=== PATIENT | female | born 1970 | race African-American/Black ===

== ENCOUNTER 2025-02-21 18:58 | Inpatient (IN) | payer OTHER, SELFPAY ==
[2025-02-21 12:16] VITALS: BP 150/75
--- NOTE | 2025-02-21 13:09 | ED.GENMED ---
History of Present Illness
<GARRET Salinas - Last Filed: 02/22/25 22:51>
General
Chief Complaint: Weakness
Source: patient
Exam Limitations: none
Time Seen by Provider: 02/21/25 12:46
Nursing documentation reviewed up to this point in time: agreed with
History of Present Illness
History of Present Illness:
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 She is followed by [facility] she gets chemo every 3 weeks and her last chemotherapy was 02/10. Patient
reports ever since her last chemo she is feeling very weak shortness of breath and has abdominal bloating and discomfort. on Eliquis, has not skipped a dose.
She does receive fluids by visiting nurse twice a week via her port however today visiting nurse sent her to the ER.
She has no cardiac history.
Phy Exam
<GARRET Salinas - Last Filed: 02/22/25 22:51>
General Physical Exam
General Presentation: no apparent distress
General age: appears stated age
General Skin: warm and dry
General Habitus: normal
General Mental: alert
General Hydration: appears well hydrated
Cardiovascular Exam
Cardiovascular Exam: regular rate/rhythm, no murmur and normal peripheral pulses
Pulmonary Exam
Pulmonary Exam: lungs clear and no respiratory distress
Gastrointestinal Exam
Gastrointestinal Exam: soft and other (Nonspecific abdominal tenderness)
Neurological Exam
Neurological Exam: alert and oriented x3
Musculoskeletal Exam
Musculoskeletal Exam: full ROM
Skin Exam
Skin Exam: normal color and warm/dry
Psychiatric Exam
Psychiatric Exam: normal mood/affect
Course
<GARRET Salinas - Last Filed: 02/22/25 22:51>
Orders/Labs/Results
Orders:
Orders
02/21/25 Breakfast
Regular
At Your Request: Full Participation
02/21/25 13:20
IV Insert/Care/Rem.- Treatment PRN
02/21/25 13:23
0.9% Sodium Chloride 500 ml [Nss] 500 ml IV BOLUS
02/21/25 13:41
Basic Metabolic Panel Urgent
Complete Blood Count/With Diff Urgent
Lipase Urgent
Pro-BNP [NT-proBNP] Urgent
Urinalysis Reflex To Culture Urgent
Date Specimen was Collected: 02/21/25
Time Specimen was Collected: 13:38
Urine Microscopic Reflex Cult Urgent
02/21/25 15:01
CT Pe/abd/pel W Urgent
Comment:
Reason For Exam: abd pain/SOB hx of cancer
02/21/25 15:59
0.9% Sodium Chloride 500 ml [Nss] 500 ml IV BOLUS
02/21/25 18:13
Admit/Transfer Patient As Directed
Co-Sign Provider:
Level of Care: Inpatient admission
Assign to:: Medical/Surgical
Physician / Group: patti matos
Diagnosis: dehydration/metstatic disease
Reason for Hospitalization: metastatic disease
Expected length of stay greater than two midnights?: Yes
ELOS- Estimated Length of Stay in days: 3
I certify the patient meets the requirements for IP care: Yes
02/21/25 18:14
PRN Pain Medication Management As Directed
May give lesser potent ordered pain med per pt: Yes
preference::
Protocol:: Medication orders for pain may be administered in a
manner that supports deferring to patient preference
when the pt is:
- Requesting an ordered lesser potent pain medication.
Least to most potent pain medications are defined
as: acetaminophen < NSAID < tramadol < opioids
(morphine, oxycodone, hydromorphone).
- Requesting a lesser dose of the same medication IF
ORDERED.
- Requesting a less intrusive route of administration
if both routes are prescribed by the provider (PO <
IV).
02/21/25 18:15
Code Status As Directed
Resuscitation Status: Full Code
02/21/25 20:33
Acetaminophen [Tylenol] 650 mg PO Q4HPRN PRN
Apixaban [Eliquis] 5 mg PO BID
Bisacodyl [Dulcolax] 10 mg RECTAL [id number] PRN
Docusate W/Senna [Senokot-S] 1 tablet PO BIDPRN PRN
Lorazepam [Ativan] 1 mg PO BIDPRN PRN anixety
Polyethylene Glycol Powder [Miralax] 17 grams PO DAILYPRN PRN
02/21/25 20:33
ONCOLOGY CONSULT Routine
Consulting Provider: Brayan Plummer
Was physician already notified: Yes
Activity As Directed
Activity Level: As Tolerated
Vital Signs As Directed
Frequency: Per unit guidelines
Ot Eval And Treat Routine
Pt Eval And Treat Routine
Activity Level: As Tolerated
02/22/25 06:16
Basic Metabolic Panel IN AM
Complete Blood Count/No Diff IN AM
Magnesium IN AM
02/22/25 08:00
Amlodipine [Norvasc] 10 mg PO DAILY
Abnormal Lab Results
02/21/25
13:41
WBC 2.7 L 10^3/uL
(4.8-10.8)
RBC 2.64 L 10^6/uL
(4.20-5.40)
Hgb 9.5 L g/dL
(12.0-16.0)
Hct 25.9 L %
(37.0-47.0)
MCH 35.2 H pg
(27.0-31.0)
RDW 14.6 H %
(11.5-14.5)
Plt Count 22 L* 10^3/uL
(130-400)
MPV 12.7 H fL
(7.4-10.4)
Absolute Lymphs (auto) 0.8 L 10^3/uL
(1.2-3.4)
Immature Gran % 0.8 H %
(0-0.5)
Sodium 131 L mmol/L
(135-145)
Glucose 105 H mg/dl
(70-99)
Ur Occult Blood Reflex 3+ A
(Negative)
Urine RBC 3-6 A /HPF
(0-2)
Urine Bacteria (Reflex) Few A
(Negative)
Urine Albumin (Reflex) 1+ A
(Neg - Trace)
02/21/25 13:41
02/21/25 13:41
Vital Signs
Initial and Last Documented VS:
Initial Vital Signs
Temp Pulse Resp BP Pulse Ox
98.0 F 106 18 150/75 93
02/21/25 12:16 02/21/25 12:16 02/21/25 12:16 02/21/25 12:16 02/21/25 12:16
Last Documented Vital Signs
Temp Pulse Resp BP Pulse Ox
98.0 F 102 16 135/70 94
02/22/25 16:00 02/22/25 16:00 02/22/25 16:00 02/22/25 16:00 02/22/25 16:00
<Julio Crowe MD - Last Filed: 02/21/25 15:24>
Orders/Labs/Results
Orders:
Orders
02/21/25 Breakfast
Regular
At Your Request: Full Participation
02/21/25 13:20
IV Insert/Care/Rem.- Treatment PRN
02/21/25 13:23
0.9% Sodium Chloride 500 ml [Nss] 500 ml IV BOLUS
02/21/25 13:41
Basic Metabolic Panel Urgent
Complete Blood Count/With Diff Urgent
Lipase Urgent
Pro-BNP [NT-proBNP] Urgent
Urinalysis Reflex To Culture Urgent
Date Specimen was Collected: 02/21/25
Time Specimen was Collected: 13:38
Urine Microscopic Reflex Cult Urgent
02/21/25 15:01
CT Pe/abd/pel W Urgent
Comment:
Reason For Exam: abd pain/SOB hx of cancer
02/21/25 15:59
0.9% Sodium Chloride 500 ml [Nss] 500 ml IV BOLUS
02/21/25 18:13
Admit/Transfer Patient As Directed
Co-Sign Provider:
Level of Care: Inpatient admission
Assign to:: Medical/Surgical
Physician / Group: patti matos
Diagnosis: dehydration/metstatic disease
Reason for Hospitalization: metastatic disease
Expected length of stay greater than two midnights?: Yes
ELOS- Estimated Length of Stay in days: 3
I certify the patient meets the requirements for IP care: Yes
02/21/25 18:14
PRN Pain Medication Management As Directed
May give lesser potent ordered pain med per pt: Yes
preference::
Protocol:: Medication orders for pain may be administered in a
manner that supports deferring to patient preference
when the pt is:
- Requesting an ordered lesser potent pain medication.
Least to most potent pain medications are defined
as: acetaminophen < NSAID < tramadol < opioids
(morphine, oxycodone, hydromorphone).
- Requesting a lesser dose of the same medication IF
ORDERED.
- Requesting a less intrusive route of administration
if both routes are prescribed by the provider (PO <
IV).
02/21/25 18:15
Code Status As Directed
Resuscitation Status: Full Code
02/21/25 20:33
Acetaminophen [Tylenol] 650 mg PO Q4HPRN PRN
Apixaban [Eliquis] 5 mg PO BID
Bisacodyl [Dulcolax] 10 mg RECTAL [id number] PRN
Docusate W/Senna [Senokot-S] 1 tablet PO BIDPRN PRN
Lorazepam [Ativan] 1 mg PO BIDPRN PRN anixety
Polyethylene Glycol Powder [Miralax] 17 grams PO DAILYPRN PRN
02/21/25 20:33
ONCOLOGY CONSULT Routine
Consulting Provider: Brayan Plummer
Was physician already notified: Yes
Activity As Directed
Activity Level: As Tolerated
Vital Signs As Directed
Frequency: Per unit guidelines
Ot Eval And Treat Routine
Pt Eval And Treat Routine
Activity Level: As Tolerated
02/22/25 06:16
Basic Metabolic Panel IN AM
Complete Blood Count/No Diff IN AM
Magnesium IN AM
02/22/25 08:00
Amlodipine [Norvasc] 10 mg PO DAILY
Abnormal Lab Results
02/21/25
13:41
WBC 2.7 L 10^3/uL
(4.8-10.8)
RBC 2.64 L 10^6/uL
(4.20-5.40)
Hgb 9.5 L g/dL
(12.0-16.0)
Hct 25.9 L %
(37.0-47.0)
MCH 35.2 H pg
(27.0-31.0)
RDW 14.6 H %
(11.5-14.5)
Plt Count 22 L* 10^3/uL
(130-400)
MPV 12.7 H fL
(7.4-10.4)
Absolute Lymphs (auto) 0.8 L 10^3/uL
(1.2-3.4)
Immature Gran % 0.8 H %
(0-0.5)
Sodium 131 L mmol/L
(135-145)
Glucose 105 H mg/dl
(70-99)
Ur Occult Blood Reflex 3+ A
(Negative)
Urine RBC 3-6 A /HPF
(0-2)
Urine Bacteria (Reflex) Few A
(Negative)
Urine Albumin (Reflex) 1+ A
(Neg - Trace)
02/21/25 13:41
02/21/25 13:41
Vital Signs
Initial and Last Documented VS:
Initial Vital Signs
Temp Pulse Resp BP Pulse Ox
98.0 F 106 18 150/75 93
02/21/25 12:16 02/21/25 12:16 02/21/25 12:16 02/21/25 12:16 02/21/25 12:16
Last Documented Vital Signs
Temp Pulse Resp BP Pulse Ox
98.0 F 102 16 135/70 94
02/22/25 16:00 02/22/25 16:00 02/22/25 16:00 02/22/25 16:00 02/22/25 16:00
<So Ayers NP - Last Filed: 02/21/25 17:43>
Orders/Labs/Results
Orders:
Orders
02/21/25 Breakfast
Regular
At Your Request: Full Participation
02/21/25 13:20
IV Insert/Care/Rem.- Treatment PRN
02/21/25 13:23
0.9% Sodium Chloride 500 ml [Nss] 500 ml IV BOLUS
02/21/25 13:41
Basic Metabolic Panel Urgent
Complete Blood Count/With Diff Urgent
Lipase Urgent
Pro-BNP [NT-proBNP] Urgent
Urinalysis Reflex To Culture Urgent
Date Specimen was Collected: 02/21/25
Time Specimen was Collected: 13:38
Urine Microscopic Reflex Cult Urgent
02/21/25 15:01
CT Pe/abd/pel W Urgent
Comment:
Reason For Exam: abd pain/SOB hx of cancer
02/21/25 15:59
0.9% Sodium Chloride 500 ml [Nss] 500 ml IV BOLUS
02/21/25 18:13
Admit/Transfer Patient As Directed
Co-Sign Provider:
Level of Care: Inpatient admission
Assign to:: Medical/Surgical
Physician / Group: patti matos
Diagnosis: dehydration/metstatic disease
Reason for Hospitalization: metastatic disease
Expected length of stay greater than two midnights?: Yes
ELOS- Estimated Length of Stay in days: 3
I certify the patient meets the requirements for IP care: Yes
02/21/25 18:14
PRN Pain Medication Management As Directed
May give lesser potent ordered pain med per pt: Yes
preference::
Protocol:: Medication orders for pain may be administered in a
manner that supports deferring to patient preference
when the pt is:
- Requesting an ordered lesser potent pain medication.
Least to most potent pain medications are defined
as: acetaminophen < NSAID < tramadol < opioids
(morphine, oxycodone, hydromorphone).
- Requesting a lesser dose of the same medication IF
ORDERED.
- Requesting a less intrusive route of administration
if both routes are prescribed by the provider (PO <
IV).
02/21/25 18:15
Code Status As Directed
Resuscitation Status: Full Code
02/21/25 20:33
Acetaminophen [Tylenol] 650 mg PO Q4HPRN PRN
Apixaban [Eliquis] 5 mg PO BID
Bisacodyl [Dulcolax] 10 mg RECTAL [id number] PRN
Docusate W/Senna [Senokot-S] 1 tablet PO BIDPRN PRN
Lorazepam [Ativan] 1 mg PO BIDPRN PRN anixety
Polyethylene Glycol Powder [Miralax] 17 grams PO DAILYPRN PRN
02/21/25 20:33
ONCOLOGY CONSULT Routine
Consulting Provider: Brayan Plummer
Was physician already notified: Yes
Activity As Directed
Activity Level: As Tolerated
Vital Signs As Directed
Frequency: Per unit guidelines
Ot Eval And Treat Routine
Pt Eval And Treat Routine
Activity Level: As Tolerated
02/22/25 06:16
Basic Metabolic Panel IN AM
Complete Blood Count/No Diff IN AM
Magnesium IN AM
02/22/25 08:00
Amlodipine [Norvasc] 10 mg PO DAILY
Abnormal Lab Results
02/21/25
13:41
WBC 2.7 L 10^3/uL
(4.8-10.8)
RBC 2.64 L 10^6/uL
(4.20-5.40)
Hgb 9.5 L g/dL
(12.0-16.0)
Hct 25.9 L %
(37.0-47.0)
MCH 35.2 H pg
(27.0-31.0)
RDW 14.6 H %
(11.5-14.5)
Plt Count 22 L* 10^3/uL
(130-400)
MPV 12.7 H fL
(7.4-10.4)
Absolute Lymphs (auto) 0.8 L 10^3/uL
(1.2-3.4)
Immature Gran % 0.8 H %
(0-0.5)
Sodium 131 L mmol/L
(135-145)
Glucose 105 H mg/dl
(70-99)
Ur Occult Blood Reflex 3+ A
(Negative)
Urine RBC 3-6 A /HPF
(0-2)
Urine Bacteria (Reflex) Few A
(Negative)
Urine Albumin (Reflex) 1+ A
(Neg - Trace)
02/21/25 13:41
02/21/25 13:41
Vital Signs
Initial and Last Documented VS:
Initial Vital Signs
Temp Pulse Resp BP Pulse Ox
98.0 F 106 18 150/75 93
02/21/25 12:16 02/21/25 12:16 02/21/25 12:16 02/21/25 12:16 02/21/25 12:16
Last Documented Vital Signs
Temp Pulse Resp BP Pulse Ox
98.0 F 102 16 135/70 94
02/22/25 16:00 02/22/25 16:00 02/22/25 16:00 02/22/25 16:00 02/22/25 16:00
<GARRET Salinas - Last Filed: 02/22/25 22:51>
MDM/Problems Addressed
Differential Diagnosis Includes:
Not limited to anemia obstruction diverticulitis metastatic disease from leiomyosarcoma
MDM/Problems Addressed:
As documented pt is 54-year-old female with past medical history of leiomyosarcoma followed at [place] currently receiving chemo complains of shortness of breath weakness and abdominal bloating discomfort. Patient denies any vomiting diarrhea cough
URI symptoms. Patient denies any recent fever chills she is afebrile. Her white count was found to be low at 2.7 here her hemoglobin is 9.5 and platelets are 22,000. Patient's labs from February 08 from [place] show white count of 4.3 and
hemoglobin 11.8 and platelets of 105,000. Patient is on Eliquis has not missed a dose
Case d/c w/ DR Crowe. CT chest/abd/pelvis ordered. pt with history of nephrectomy however normal renal function fluid bolus given. Patient not hypoxic in no acute distress. Care of patient at this time transferred to
[facility]. ct pending.
<GARRET Salinas - Last Filed: 02/22/25 22:51>
*Radiology
Radiology exam reviewed: radiology read reviewed
*Pulse Oximetry
SaO2: 93
Oxygen Mode of Delivery: Room air
Patient hypoxic: yes
*Critical Care Note
Total Time (30-74mins, 75-104mins- exclusive of procedures): Not Applicable
<So Ayers NP - Last Filed: 02/21/25 17:43>
Update Note
Update Note:
Patient to ED with complaint of increasing weakness, dyspnea since her last chemo on 02/10. States this was the 2nd round of a new medication. SHe did not have issues after her first round. SHe reports she is unable to ambulate, care for self
without max assist due to her weakness. Reviewed CT findings with her. SHe denies any new findings. VSS, she remains afebrile. Pulse ox stable at 98% RA WIll admit to hospitalist a planned.
ED Attending Note
<GARRET Salinas - Last Filed: 02/22/25 22:51>
-
Portions of this chart may have been created with voice recognition software.� Occasional wrong word or��sound alike� substitutions may have occurred due to the inherent limitations of voice recognition software.
<Julio Crowe MD - Last Filed: 02/21/25 15:24>
ED Attending Note
Patient seen and examined by attending physician: Yes
I performed the substantive portion of visit, reviewed & personally made and approve the management plan that is documented in note by myself or SUDHIR.: Yes
ED Attending Note:
54-year-old female complaining of increased shortness of breath and abdominal distention over 3 to 4 days. Currently receiving chemo at [place] for sarcoma. Last treatment 2 weeks ago. Denies chest pain pleuritic pain fever.
On exam patient is in no acute distress. She has got crackles and rhonchi in the left base. Heart regular rate and rhythm. No murmur. Abdomen mildly distended. Old scar. Mild epigastric tenderness. No rebound or guarding no mass or hernia.
Extremities warm and dry. Perfusing well. No edema.
Impression is shortness of breath dyspnea on exertion fatigue abdominal distention. Multiple etiologies including PE acute abdominal process pneumonia. Highly doubt heart failure primary cardiac issue. Doubt obstruction. Creatinine is stable.
She does have 1 kidney but IV dye should be reasonable given the normal renal function.
Patient has remained stable clinically. Workup continues. Renal function normal. Thrombocytopenia new. Previous platelet count was 102. Discussed IV dye with the patient both for abdominal scanning and for pulmonary emboli workup. Dye with 1
kidney and normal renal function should not be an issue. However this was discussed with the patient to make sure she was okay with this approach which she is. Will clearly warrant admission. Await further testing to help delineate etiology of
patient's symptoms
Discharge Plan
Departure
Patient Disposition: Admit
Date of Disposition: 02/21/25
Time of Disposition: 17:35
Presentation/result/management discussed w/ accepting MD/DO: Hospitalist
Patient with high blood pressure during this ER visit?: No
Condition: Fair
Covid-19: Not Applicable
Discharge Problem:
Weakness, Dyspnea
Interventions
Interventions:
*Risk Screen - Suicide Last Done: 02/21/25 12:16
*General Assessment Last Done: 02/21/25 12:16
*Neglect/Abuse Screening Last Done: 02/21/25 13:34
*ED- Fall Risk Assessment Last Done: 02/21/25 13:34
*ED COVID-19 Vaccine History Last Done: 02/21/25 13:34
*ED Influenza Vaccine History Last Done: 02/21/25 13:34
*Nursing Disposition Last Done: 02/21/25 20:20
ED- Cardiac Assessment Last Done: 02/21/25 13:34
ED- Neurological Assessment Last Done: 02/21/25 13:34
ED- Pulmonary Assessment Last Done: 02/21/25 13:34
Discharge Date and Time
Discharge Date/Time: 02/21/25 20:20
[2025-02-21 13:34] VITALS: BMI 21.5
[2025-02-21] MEDS: NSS 500 IV ×2 (13:42→16:37)
[2025-02-21 13:59] LABS: Urine Character Clear (Clear)
[2025-02-21 14:09] LABS: Urine Squamous Cell 16-20 /LPF (Few)
[2025-02-21 14:23] LABS: Hematocrit 25.9 % (37.0-47.0); Hemoglobin 9.5 g/dL (12.0-16.0); Mean Corp Hgb Conc. 36.0 g/dL (33.0-37.0); Mean Corpuscular Volume 97.7 fL (81.0-99.0); Nucleated Red Blood Cells % 0 %; Red Cell Dist. Width 14.6 % (11.5-14.5)
[2025-02-21 14:25] LABS: Platelet Count 22 10^3/uL (130-400)
[2025-02-21 14:37] LABS: Blood Urea Nitrogen 13 mg/dl (7-17); Calcium 8.4 mg/dl (8.4-10.2); Carbon Dioxide 23 mmol/L (22-30); Chloride 103 mmol/L (98-107); Estimated Creatinine Clearance 106 ml/min; Glucose 105 mg/dl (70-99); Lipase 98 U/L (23-300); Sodium 131 mmol/L (135-145); eGFR > 60.00
--- NOTE | 2025-02-21 17:45 | HPS.HSE ---
Family Physician
-
Family Physician: Joan Boucher
Chief Complaint
-
generalized weakness, sob
History of Present Illness
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 patient stated that her body feels very heavy and not to
able move due to weakness.patient stated sob with exertion. denied cough,congestion, fever, chills, HERMAN, dizzy. denied chest pain. she feels her abdomen is bloated. denied diarrhea, constipation. denied dysuria or hematuria. She is followed by [facility]
she gets chemo every 3 weeks.She does receive fluids by visiting nurse twice a week via her port however today visiting nurse sent her to the ER.
upon arrival noted leukopenia. received normal saline in Er. admitting for further management.
Medical History
Past Medical History
Past Medical History: Reports Other
Additional Past Medical History:
Hypertension, leiomyosarcoma
Past Surgical History: Reports Other
Additional Past Surgical History:
Nephrectomy hysterectomy, cholecystectomy, hernia repair
Social History
Tobacco: Non-smoker
Alcohol: None
Drug: None
Personal:
Living: With Family
Family History
Family History: Not pertinent
Allergies / Home Medications
Allergies reflects when Allergies were last updated in imagine.
Home Medications with original date entered in imagine
Allergy/Medication List:
Allergies
Allergy/AdvReac Type Severity Reaction Status Date / Time
adhesive tape Allergy Unknown Verified 02/21/25 12:21
Home Medications
amlodipine 10 mg tablet (Norvasc) 10 mg PO DAILY 02/21/25
apixaban 5 mg tablet (Eliquis) 5 mg PO BID 02/21/25
hydrochlorothiazide 25 mg tablet 25 mg PO DAILY 02/21/25
lorazepam 1 mg tablet 1 mg PO BIDPRN PRN anixety 02/21/25
Review of Systems
-
Constitutional: Reports No Symptoms
EENT: Reports No Symptoms
Respiratory: Reports Trouble Breathing
Cardiac: Reports No Symptoms
Abdomen/GI: Reports No Symptoms
: Reports No Symptoms
Musculoskeletal: Reports No Symptoms
Skin: Reports No Symptoms
Neurological: Reports Weakness
Endocrine: Reports No Symptoms
Hematologic/Lymphatic: Reports No Symptoms
Psych: Reports No Symptoms
Physical Exam
Vital Signs
Vital Signs
Temp Pulse Resp BP Pulse Ox
98.0 F 99 15 150/75 98
02/21/25 12:16 02/21/25 16:00 02/21/25 16:00 02/21/25 12:16 02/21/25 15:15
Physical Exam
General: Well Developed, Well Nourished and No Apparent Distress
HEENT: NormoCephalic, Moist mucous membranes and Atraumatic
Respiratory: Clear
Cardiac: S1/S2 and Regular Rhythm; No Murmur or Rub
GI: Soft, Non Tender, Non Distended and Normal Bowel Sounds; No Organomegaly
Rectal: Deferred by Provider
Musculoskeletal: No Clubbing, No Cyanosis and No Edema
Skin: No Rash
Neuro: AO x 3 and Nonfocal/grossly intact
Psych: Calm
Laboratory Results
-
02/21/25 13:41
02/21/25 13:41
Laboratory Results
Total Bilirubin Cancelled 02/21/25 13:41
AST Cancelled 02/21/25 13:41
ALT Cancelled 02/21/25 13:41
Alkaline Phosphatase Cancelled 02/21/25 13:41
Lipase 98 U/L (23-300) 02/21/25 13:41
Data Reviewed
-
CT Scan: Report Reviewed by me
Lab Data: Labs Reviewed by me
Impression/Plan
-
# Generalized weakness likely secondary to chemo and metastic disease
-PT/OT consulted
# Short of breath unclear cause
-- CT abdomen pelvis with impression of no evidence of PE.
-oxygenating very well on RA
-consider supplemental oxygen to keep sat >95, wean as tolerated
# Leukopenia secondary to chemo
- WBCs 2.7, hemoglobin 9.5, platelets 22
-ctm
# Hyponatremia likely hypovolemic
- Sodium 131
-fluids in the ER
-BMP in am
-hold hctz
#hxt of leiomyosarcoma with mets to the liver
-on Chemo at [place] every 3 weeks, last dose on the , next dose on the
-oncology consulted
#abdominal bloating likely from metastatic disease
-CT with Mild left lower lobe atelectasis.There is a 1.4 mm and 2.1 mm pulmonary nodule. Comparison with any prior examination advised. Otherwise, consider follow-up in one year.Hepatic metastatic disease. Right adrenal mass, likely metastatic
lesion. Left para-aortic/renal fossa mass; a similar mass was present in 2016. This may represent recurrent renal cell carcinoma the proper clinical setting, or the patient's known sarcoma and/or recurrence. Correlation advised, as well as
comparison with any more recent prior examination. Suspect 2.9 cm mass in the pancreatic head. This could represent focal pancreatitis, primary pancreatic neoplasm, or metastatic lesion. Comparison with any prior examination advised. Small bowel
wall thickening with low attenuation, suggesting diffuse edema. No dilated bowel loops or evidence of obstruction. No pneumatosis.Mild ascites. Mesenteric edema. Mild mesenteric adenopathy.
#hxt of PE
-on eliquis
#essential HTN
-Norvasc continued with hold parameter
-hold hctz due to hyponatremia
#anxiety
-lorazepam prn
#DVT prophylaxis
-eliquis
#CODE status
-full code
--- NOTE | 2025-02-21 17:48 | W.PN.UPDATE ---
Update Note
Progress Note Update
This note serves as an addendum to the H&P by shake table operator SUDHIR�
[place] SEPIDEH�
HPI
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
- sent in by VN: receive IVF by visiting nurse twice a week via her port
- Last chemo 02/10 ever since her last chemo - feeling very weak, SoB, abdominal bloating and discomfort.
- shortness of breath weakness and abdominal bloating discomfort.
- enies any vomiting diarrhea cough URI symptoms.
- denies any recent fever chills she is afebrile.
- Not hypoxic in no acute distress.
Admission Labs
WCC 2.7 ( 4.3 as of 02/08/25)
Hgb 9.5 ( 11.8 as of 02/08/25)
Platelets 22,000 ( 105,000 as of 02/08/25)
PHX' see above
Relevant VS
Temp Pulse Resp BP Pulse Ox
98.0 F 100 22 150/75 96
02/21/25 12:16 02/21/25 17:45 02/21/25 17:45 02/21/25 12:16 02/21/25 17:00
PE
Gen: looks ill but not toxic
HEENT:anicteric
Neck:supple
Lungs:symmetric AE
Cor:RRR S1 S2
Abdomen:�soft NT NG
LEVEL VIAL SEALER: AAO3
MS: no edema
Psych: Nl mood and affect
Relevant Data
02/21/25
13:41
WBC 2.7 L
Hgb 9.5 L
Plt Count 22 L*
Sodium 131 L
Carbon Dioxide 23
Creatinine 0.7
eGFR > 60.00
Cap-K-Xxnekgzvhle Pept 357
Lipase 98
CT Pe/abd/pel W
- No evidence of pulmonary embolism.
- Pulmonary artery branching order level of the most proximal pulmonary embolism: N/A
- Marked asymmetric enlargement of the left lobe of the thyroid gland with inferior extension.
Heterogeneous attenuation and enhancement with low-attenuation and/or cystic masses.
Mass effect on the trachea and esophagus. Comparison with any prior examination advised. Otherwise, consider follow-up ultrasound.
- Mild left lower lobe atelectasis.
- There is a 1.4 mm and 2.1 mm pulmonary nodule. Comparison with any prior examination advised. Otherwise, consider follow-up in one year.
- Hepatic metastatic disease.
- Right adrenal mass, likely metastatic lesion.
- Left para-aortic/renal fossa mass; a similar mass was present in 2016.
This may represent recurrent renal cell carcinoma the proper clinical setting, or the patient's known sarcoma and/or recurrence.
Correlation advised, as well as comparison with any more recent prior examination.
- Suspect 2.9 cm mass in the pancreatic head. This could represent focal pancreatitis, primary pancreatic neoplasm, or metastatic lesion.
Comparison with any prior examination advised.
- Small bowel wall thickening with low attenuation, suggesting diffuse edema. No dilated bowel loops or evidence of obstruction. No pneumatosis.
- Mild ascites. Mesenteric edema. Mild mesenteric adenopathy.
No prior hospitalist admission:
ASSESSMENT & PLAN
Worsening pancytopenia with sever thrombocytopenia
ANC 1600
Suspect Chemo induced on 02/10
Afebrile
Hemodynamically stable
- No active bleeding
- Afebrile
- T & S Blood consent incase
- Onco consult
Concerning for recurrence of Sarcoma with extensive abnormal CT AP ( se report above)
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
- receive IVF by visiting nurse twice a week via her port
- Last chemo 02/10
- Oncology consult
HX Nephrectomy
- unilateral functioning Kidney with preserved RFT
Chr Eliquis for HX PE
DVT Px: Eliquis
Full code
IP MS
[2025-02-21 20:41] VITALS: BMI 20.7
[2025-02-21 20:42] VITALS: BP 123/68
[2025-02-21] MEDS: ELIQUIS 5 MG PO (20:50)
[2025-02-21 23:58] VITALS: BP 109/54
[2025-02-22 07:12] LABS: Hematocrit 23.3 % (37.0-47.0); Hemoglobin 8.6 g/dL (12.0-16.0); Mean Corp Hgb Conc. 36.9 g/dL (33.0-37.0); Mean Corpuscular Volume 99.1 fL (81.0-99.0); Platelet Count 19 10^3/uL (130-400); Red Cell Dist. Width 14.7 % (11.5-14.5)
[2025-02-22 07:21] LABS: Blood Urea Nitrogen 10 mg/dl (7-17); Calcium 8.2 mg/dl (8.4-10.2); Carbon Dioxide 22 mmol/L (22-30); Chloride 105 mmol/L (98-107); Estimated Creatinine Clearance 101 ml/min; Glucose 82 mg/dl (70-99); Magnesium 1.8 mg/dl (1.6-2.3); Potassium 3.8 mmol/L (3.5-5.1); Sodium 133 mmol/L (135-145); eGFR > 60.00
[2025-02-22 07:30] VITALS: BP 137/68
[2025-02-22] MEDS: NORVASC 10 MG PO (08:20)
[2025-02-22] MEDS: ELIQUIS 5 MG PO (08:20)
[2025-02-22 09:51] VITALS: BP 130/70; BP 149/73; PULSE 101; O2SAT 100
[2025-02-22 09:54] VITALS: BP 130/70; BP 149/73; PULSE 101; O2SAT 100
--- NOTE | 2025-02-22 11:01 | CON.ONC ---
Consultation
-
Date Consultation Requested: 02/21/25
Date Consultation Performed: 02/22/25
Requesting Provider: GARRET Nelson
Performing Provider: Dr. Anders; Dr. Nunez
Reason for Consultation: Pancytopenia; leiomyosarcoma
Impression
Impression
Patient is a 54-year-old female with PMH of leiomyosarcoma s/p Yondelis chemotherapy (2 sessions completed, started late December, most recent session 02/10, Neulasta 02/11) and PE (2022) on qu who presented to the [facility] ED on 02/21 with profound
fatigue, weakness, and shortness of breath with subsequent laboratory findings of pancytopenia and CTAP findings of hepatic and right adrenal metastasis.
Pancytopenia suspected 2/2 recent chemotherapy
Clinical
- Profound fatigue, weakness, bloating, and shortness of breath
- Mild tachypnea and tachycardia. Afebrile, stable BP.
- Currently on Yondelis chemotherapy, last session 02/10
Labs
- Hgb 8.6, WBCs 2.8, platelets 19
Imaging
- CTAP (02/21): Hepatic metastatic disease. Right adrenal mass, concerning for metastases. Suspected 2.8 cm pancreatic head mass. Lateral ascites. Pulmonary nodules x2 (1.4 mm, 2.1 mm).
Plan
Plan
Pancytopenia 2/2 chemotherapy
IVF for volume repletion
Monitor CBC, clinical status
Transfuse platelets <10,000
Follow-up with Dr. Hook upon discharge to discuss/continue chemotherapy regimen
Patient History
History of Present Illness
Patient is a 54-year-old female with PMH of leiomyosarcoma on chemotherapy and PE on Eliquis who presented to the [facility] ED with weakness and shortness of breath. Patient has been experiencing 'total weakness', shortness of breath, and bloating since
starting her new chemotherapy regimen of Yondelis at the end of December. She follows with Dr. Rehan Hook at [place]. Patient's current regimen is scheduled to be administered every 3 weeks, with her most recent session 02/10 (with Neulasta 02/11) and
upcoming session scheduled for 03/03. Due to her extreme fatigue on this new regimen, patient has recently been receiving IV fluids 2x/week via visiting nurse. The fatigue on this new regimen is worse than any prior chemotherapy regimens. Since
her leiomyosarcoma diagnosis in 2015, patient has undergone nephrectomy for cancer spread to her left renal vein, as well as chemotherapy intermittently since 2022. Metastasis to her liver and adrenal gland prompted this new regimen of Yondelis.
Patient says she is having 'pain everywhere', specifically in her bones and joints. Patient is also having nosebleed with clots in her right nare. Since presentation yesterday, patient has been intermittently mildly tachycardic (low 100s) and
intermittently tachypneic (up to RR 22). Afebrile with stable blood pressure. Labs show pancytopenia, as follows: Hgb 8.6, WBCs 2.8, PLT 19. CTAP shows hepatic metastases, right adrenal metastasis, suspected 2.9 cm mass in the pancreatic head,
and mild ascites. Denies chest pain, fever, chills, headache, N/V/D, abdominal pain, hematochezia, hematemesis, hemoptysis, or melena.
Past-Medical/Surgical History
Leiomyosarcoma w/ hepatic and adrenal metastases
Pulmonary embolism (2022) on Eliquis
Left nephrectomy
Patient Medication
�Medication �Instructions �Recorded �Confirmed �Last Taken �Type
amlodipine 10 mg tablet (Norvasc) 10 mg PO DAILY Blood Pressure 02/21/25 02/21/25 02/21/25 History
apixaban 5 mg tablet (Eliquis) 5 mg PO BID Blood Clot 02/21/25 02/21/25 02/21/25 History
Prevention/Tx
hydrochlorothiazide 25 mg tablet 25 mg PO DAILY Blood Pressure 02/21/25 02/21/25 02/21/25 History
lorazepam 1 mg tablet 1 mg PO BIDPRN PRN anixety 02/21/25 02/21/25 Unknown History
Active Medications
Generic Name Dose Route Start Last Admin
Trade Name Freq PRN Reason Stop Dose Admin
Acetaminophen 650 mg 02/21/25 20:33
Acetaminophen 325 Mg Tablet PO 03/21/25 20:32
Q4HPRN PRN
mild pain/HERMAN/temp> 100.4F
Amlodipine Besylate 10 mg 02/22/25 08:00 02/22/25 08:20
Amlodipine 10 Mg Tablet PO 03/22/25 07:59 10 mg
DAILY VILMA Administration
Apixaban 5 mg 02/21/25 20:33 02/22/25 08:20
Apixaban (Eliquis) 5 Mg Tablet PO 03/21/25 20:32 5 mg
BID VILMA Administration
Bisacodyl 10 mg 02/21/25 20:33
Bisacodyl 10 Mg Rectal Suppository RECTAL 03/21/25 20:32
[id number] PRN
constipation
Sodium Chloride 1,000 mls @ 80 mls/hr 02/22/25 11:00
Nss IV
.[id number] VILMA
Lorazepam 1 mg 02/21/25 20:33
Lorazepam 1 Mg Tablet PO 03/21/25 20:32
BIDPRN PRN
anixety
Polyethylene Glycol 17 grams 02/21/25 20:33
Polyethylene Glycol Powder 17 Grams Packet PO 03/21/25 20:32
DAILYPRN PRN
constipation
Senna/Docusate Sodium 1 tablet 02/21/25 20:33
Docusate W/Senna (Carmen-Colace) Tablet PO 03/21/25 20:32
BIDPRN PRN
constipation
Sodium Chloride 0 flush 02/21/25 21:00
Sodium Chloride 0.9% (Flush) Syringe IV 03/21/25 20:59
PER PROTOCOL VILMA
Review of Systems
-
History Source: Patient
Constitutional: Reports Fatigue and Weakness; Denies Fever or Chills
EENT: Reports Bloody Nose (Right-sided)
Respiratory: Reports Trouble Breathing (With movement); Denies Hemoptysis
Cardiac: Denies Chest Pain
GI: Reports Bloated; Denies Abdominal Pain, Nausea, Vomiting, Diarrhea, Bloody Stools, Black Stools or Hemetemesis
: Denies Other (Denies hematuria)
Musculoskeletal: Reports Joint Pain and Other (Bone pain)
Neuro: Denies Headache
Hematologic/Lymphatic: Denies Bruising
Physical Exam
-
General: No Apparent Distress and Appears Chronically Ill; Negative Fever, Chills or Sweats
HEENT: Negative Jaundice
Cardiology: S1, S2 and No Murmur; Negative Rub/Gallop
Pulmonary: Clear
GI: Distended (Mild); Negative Tense
Musculoskeletal: No Cyanosis
Extremities: Pulses Present; Negative Phlebitic Signs
Neurology: Non Focal
Skin: Warm and Dry
Psych: Calm
Labs
Lab Results
WBC 2.8 10^3/uL (4.8-10.8) L 02/22/25 06:16
RBC 2.35 10^6/uL (4.20-5.40) L 02/22/25 06:16
Hgb 8.6 g/dL (12.0-16.0) L 02/22/25 06:16
Hct 23.3 % (37.0-47.0) L 02/22/25 06:16
MCV 99.1 fL (81.0-99.0) H 02/22/25 06:16
MCH 36.6 pg (27.0-31.0) H 02/22/25 06:16
MCHC 36.9 g/dL (33.0-37.0) 02/22/25 06:16
RDW 14.7 % (11.5-14.5) H 02/22/25 06:16
Plt Count 19 10^3/uL (130-400) L* 02/22/25 06:16
MPV 11.2 fL (7.4-10.4) H 02/22/25 06:16
Abs Immat Gran (auto) 0.0 10^3/uL (0-0.05) 02/21/25 13:41
Absolute Neuts (auto) 1.6 10^3/uL (1.4-6.5) 02/21/25 13:41
Absolute Lymphs (auto) 0.8 10^3/uL (1.2-3.4) L 02/21/25 13:41
Absolute Monos (auto) 0.2 10^3/uL (0.1-0.6) 02/21/25 13:41
Absolute Eos (auto) 0.0 10^3/uL (0-0.7) 02/21/25 13:41
Absolute Basos (auto) 0.0 10^3/uL (0-0.2) 02/21/25 13:41
Immature Gran % 0.8 % (0-0.5) H 02/21/25 13:41
Neutrophils % 60.0 % (42.2-75.2) 02/21/25 13:41
Lymphocytes % 31.5 % (20.5-51.1) 02/21/25 13:41
Monocytes % 6.7 % (1.7-9.3) 02/21/25 13:41
Eosinophils % 0.0 % (0-6) 02/21/25 13:41
Basophils % 0.7 % (0-2) 02/21/25 13:41
Creatinine 0.7 mg/dL (0.6-1.0) 02/22/25 06:16
Vital Signs
Vital Signs
Temp Pulse Resp BP Pulse Ox
98.0 F 93 16 137/68 94
02/22/25 07:30 02/22/25 07:30 02/22/25 07:30 02/22/25 08:20 02/22/25 07:30
[2025-02-22] MEDS: NSS 1000 IV (11:27)
--- NOTE | 2025-02-22 11:54 | W.PN.HOSP.TC ---
Addendum entered and electronically signed by Yahir Celis MD 02/22/25 23:47:
Attending Addendum-
I saw and evaluated the patient. I reviewed the resident�s note and agree with findings and plan as documented in the resident�s note. Sub: complains of bone pain due to Neulasta. willing to try po pain meds. seen with present. denies
bleeding or brusiing. Full 12 point ROS reviewed and negative except as documented Exam: Vitals reviewed in chart GEN-NAD heart RRR lungs clear abd soft LE no edema
Plan:
# Generalized weakness SOB and pain pain likely secondary to chemo and metastatic disease
- CT abdomen pelvis with impression of no evidence of PE.
- on RA
- pain control trial of PO pain meds
# Pancytopenia- secondary to chemo
- neulasta given one week ago
- ctm as op
-heme onc input appreciated- no indication for transfusion
# Hyponatremia likely hypovolemic
-improved
-hold hctz
#hxt of leiomyosarcoma with mets to the liver
-on Chemo at [facility] every 3 weeks, last dose on the , next dose on the
-oncology input appreciated stable for DC home with pain control f/u OP onc
#abdominal bloating likely from metastatic disease
-CT with Mild left lower lobe atelectasis.There is a 1.4 mm and 2.1 mm pulmonary nodule. Comparison with any prior examination advised. Otherwise, consider follow-up in one year.Hepatic metastatic disease. Right adrenal mass, likely metastatic
lesion. Left para-aortic/renal fossa mass; a similar mass was present in 2016. This may represent recurrent renal cell carcinoma the proper clinical setting, or the patient's known sarcoma and/or recurrence. Correlation advised, as well as
comparison with any more recent prior examination. Suspect 2.9 cm mass in the pancreatic head. This could represent focal pancreatitis, primary pancreatic neoplasm, or metastatic lesion. Comparison with any prior examination advised. Small bowel
wall thickening with low attenuation, suggesting diffuse edema. No dilated bowel loops or evidence of obstruction. No pneumatosis.Mild ascites. Mesenteric edema. Mild mesenteric adenopathy.
- f/u OP with onc
#hxt of PE
-cont eliquis
#essential HTN
-Norvasc continued with hold parameter
-hold hctz due to hyponatremia
#anxiety
-lorazepam prn
#DVT prophylaxis
-eliquis
#CODE status
-full code
ACP
Patient consented to discuss, was with , time spent explanation of advance directives, changes in health status, patient�s health care wishes if the patient becomes unable to make health decisions, goals of care, code status, and prognosis 'i
wan to live for a long time, why are you asking this am i dying?'- 16 minutes
Time spent coordinating care, DC planning, review of DC plan of care with resident, transition of care, review of records, med rec/scripts sent electronically, consults, notes, d/w consultants, nursing, family, and CM� 31 mins >50% of this time was
devoted to counseling and coordination of care
Original Note:
Today's Communication/Plan
-
Ordered one time dose of oxycodone, will adjust according to patient's pain
Assessment / Plan
Assessment / Plan
Assessment:
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
persisted since her second round of chemotherapy on 02/10.
Plan:
Generalized Weakness and Pain
Shortness of Breath
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
-Patient with history of Leiomyosarcoma diagnosed in 2015 s/p several surgeries and subsequent development of metastatic disease in 2022
-Follow with Dr. Rehan Hook at [facility] at [place]
-Current outpatient regimen includes Yondelis, second dose given on 02/10 and Neulasta on 02/11. Symptoms have worsened since that time
-CT scan of Chest/Abdomen/Pelvis: Mild left lower lobe atelectasis. 1.4mm and 2.1mm pulmonary nodule. Hepatic metastatic disease. Right adrenal mass, likely metastatic lesion. Left para-aortic/renal fossa mass; a similar mass was present in 2016.
This may represent recurrent renal cell carcinoma or the patient�s known sarcoma and/or recurrence. Suspect 2.9cm mass in the pancreatic head. Small bowel wall thickening with low attenuation, suggesting diffuse edema.
-Oncology has been consulted by the primary care team, appreciate their insight into her case
-At this point her symptoms are all likely secondary to her recent chemotherapy
-Provided one time dose of 5mg oxycodone. Will follow up to see how this is addressing her pain
-Upon discharge will need to follow up with Dr. Hook.
Pancytopenia
-WBC 2.7 on admission (4.3 02/08)
-Hemoglobin 9.5 on admission (11.8 on 02/08)
-Platelets 22 on admission (105 on 02/08)
-Today, WBC has increased to 2.8, hemoglobin has decreased to 8.6, and platelets decreased to 19
-No active sign of bleed. Discussed her case with hematology directly who plans to give her gentle IV Fluids today, but no indication for transfusion unless her platelets drop below 10,000 or she develops concerning bleeding.
Hyponatremia
-Sodium 131 in the ED, 133 today
-S/p fluids in the ED
-Continue to hold hydrochlorothiazide
History of PE
-Currently taking Eliquis
Essential Hypertension
-Continue Norvasc
-Continue to hold hydrochlorothiazide
Anxiety
-Conintue lorazepam PRN
Anticipated Discharge: Within 24 hours
Subjective/Interval History
-
Date of Service: February 22, 2025
Patient was resting in her room when I arrived. She states that ever since chemotherapy on 02/10 she has had worsening weakness, bloating, and bone pain. Her weakness has been so severe that sometimes she will just lay on the floor in the bathroom
because it takes too much effort to stand. Additionally, even small movements cause her significant shortness of breath. She does not currently have shortness of breath but that is because she is trying not to move at all.
She states her weakness is in part due to true weakness, and in part is due to pain when she moves. She does not currently take any pain medications, and states she has tried to avoid them whenever she can, but is receptive to pain medication today.
Objective Data
-
Labs:
Laboratory Results
02/22/25
06:16
WBC 2.8 L
Hgb 8.6 L
Hct 23.3 L
Plt Count 19 L*
Sodium 133 L
Potassium 3.8
Chloride 105
Carbon Dioxide 22
BUN 10
Creatinine 0.7
Glucose 82
Calcium 8.2 L
Vital Signs:
Vital Signs
Temp Pulse Resp BP Pulse Ox
98.0 F 93 16 137/68 94
02/22/25 07:30 02/22/25 07:30 02/22/25 07:30 02/22/25 08:20 02/22/25 07:30
Review of Systems
-
History Source: Patient
Constitutional: Reports No Appetite (Has been eating ensure, did eat an omelet today), Fatigue and Weakness; Denies Fever or Chills
Respiratory: Reports Trouble Breathing (With movement); Denies Cough
Cardiac: Denies Chest Pain
Abdomen/GI: Reports Bloated; Denies Nausea, Vomiting, Diarrhea or Constipated
Musculoskeletal: Reports Joint Pain
Neuro: Reports Dizzy (NOT vertigo), Weakness and Lightheadedness (NOT vertigo); Denies Headache
Hematologic / Lymphatic: Denies Bleeding
Physical Exam
-
General: Well Developed and Well Nourished
HEENT: Normocephalic and Atraumatic
Respiratory: Clear to Auscultation
Cardiac: Regular Rhythm and S1/S2
Skin: Warm and Dry
Neuro: Awake, Alert and Oriented
Psych: Calm
[2025-02-22] MEDS: ROXICODONE 5 MG PO (12:17)
[2025-02-22 16:00] VITALS: BP 135/70
--- NOTE | 2025-02-22 16:14 | CM ---
Patient seen at bedside
IA completed
Dx: dehydration/metastatic disease
PMH: leiomyosarcoma diagnosed 2016 with metastasis to the liver and history of nephrectomy, history of PE currently taking Eliquis who presented to the ED on 02/21 with weakness and shortness of breath that has persisted since her second round of
chemotherapy on 02/10.
Lives with in 2 story home, 0 [address]
plof: Independent
denies DME
states current with [facility] for IVF, denies rehab
PCP: Joan Boucher
Pharmacy: [facility]
plan: home, [facility], CM to continue to follow hospital progression
--- NOTE | 2025-02-22 16:28 | W.DCSUMMARY ---
Addendum entered and electronically signed by Yahir Celis MD 02/22/25 23:49:
Read, reviewed, and agree. See same day progress note for additional details. oxycodone script given 5q8 prn x 7 days #21 NR.
Ki Celis MD
Original Note:
Documented by User: Liberty Gallagher DO, Resident 02/22/25 17:27
Discharge Summary
Discharge Data
Date of Admission: 02/21/25
Date of Discharge: 02/22/25
-
Pending Results: No
Hospital Course
Discharging Physician : Dr. Celis
Disposition : Fair
Primary care physician : Joan Boucher DO
Principal Discharge diagnosis : Metastatic Leciomyosarcoma
Chronic Discharge diagnosis : History of PE (On Eliquis)
Hospital Course :
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
persisted since her second round of chemotherapy on 02/10.
Briefly, she was first diagnosed with leiomyosarcoma in 2015. She reports several surgeries to remove tumors, but in 2022 she first developed metastasis and started on chemotherapy at that time. She follows with [facility] with Dr. Rehan Olsen in
[facility]. She recently switched chemotherapy to Yondelis and received her second dose of this on 02/10. She reports receiving GSF on 02/11. Because of increased, continued weakness following chemotherapy, she has visiting nurses come to her house on
Tuesdays and to give her IV fluids. On 02/21, the visiting nurse saw how weak she was and encouraged her to come to the ED.
She follows with [facility] for chemotherapy and receives fluids twice a week by visiting nurses through her port. She had a visiting nurse arrive today to give her fluids, and her visiting nurse sent her to the ED.
In the ED, she was found to have WBC of 2.7, platelets of 22 and hemoglobin of 9.5. She received IV fluids in the ED. A CT scan was performed [Result below]. Oncology was consulted and she was admitted to the hospital.
In the morning, her WBC increased to 2.8, her platelets decreased to 19, and her hemoglobin decreased to 8.6. At this time, there was no indication for platelet transfusion. She was given a one time dose of oxycodone, which improved her shortness of
breath and thus weakness significantly. She was found to be medically stable and discharged to home on 02/22/2025. She was sent home with a physical script for a 7 day supply of oxycodone 5mg 1 tablet every 8 hours as needed for severe pain. She was
encouraged to follow up with her PCP in less than 1 week, and with her oncologist for continued care.
Important imaging findings :
CT Scan PE/Ab/Pelvis: Marked asymmetric enlargement of the left lobe of the thyroid gland with inferior extension. Heterogeneous attenuation and enhancement with low-attenuation and/or cystic masses. Mass effect on the trachea and esophagus.
Comparison with any prior examination advised. Otherwise, consider follow-up ultrasound.
Mild left lower lobe atelectasis.
There is a 1.4 mm and 2.1 mm pulmonary nodule. Comparison with any prior examination advised. Otherwise, consider follow-up in one year.
Hepatic metastatic disease. Right adrenal mass, likely metastatic lesion. Left para-aortic/renal fossa mass; a similar mass was present in 2016. This may represent recurrent renal cell carcinoma the proper clinical setting, or the patient's known
sarcoma and/or recurrence. Correlation advised, as well as comparison with any more recent prior examination.
Suspect 2.9 cm mass in the pancreatic head. This could represent focal pancreatitis, primary pancreatic neoplasm, or metastatic lesion. Comparison with any prior examination advised.
Small bowel wall thickening with low attenuation, suggesting diffuse edema. No dilated bowel loops or evidence of obstruction. No pneumatosis.
Mild ascites. Mesenteric edema. Mild mesenteric adenopathy.
Procedure findings : N/a
Discharge Plan
-
Patient Disposition: Home (Routine Discharge)
Discharge Diagnosis/Procedures: Metastatic Leiomyosarcoma
Condition: Fair
Diet: No restrictions
Activity: No restrictions
Driving Restrictions: As prior to admission
Bathing Restrictions: None
Referrals:
Joan Boucher DO [Family Provider, [facility]] - in less than 1 week
Additional Discharge Medication Instructions: We are sending you home with a physical prescription for Oxycodone 5mg. You may take this NEEDED for SEVERE PAIN once every 8 hours. Please give this script to the pharmacy to have it filled.
Please follow up with your primary care doctor in less than 1 week. We also encourage you to follow up with your Administrative Support Clerk/Oncologist at [facility]. Please inform them of your recent hospitalization.
Prescriptions:
Continued
Eliquis 5 mg Tablet
5 mg PO BID
amlodipine [Norvasc] 10 mg Tablet
10 mg PO DAILY
hydrochlorothiazide 25 mg Tablet
25 mg PO DAILY
lorazepam 1 mg Tablet
1 mg PO BIDPRN PRN (Reason: anixety)
Discharge Orders:
Discharge Patient (As Directed); Ordered 02/22/25
Ordered By: Liberty Gallagher
Discharge Date and Time
Discharge Date/Time: 02/22/25 19:32
Print Language: LUXEMBOURGER

Documented by User: Yahir Celis MD 02/22/25 23:40
Discharge Summary
Discharge Data
Date of Admission: 02/21/25
Date of Discharge: 02/22/25
Discharge Plan
-
Patient Disposition: Home (Routine Discharge)
Discharge Diagnosis/Procedures: Metastatic Leiomyosarcoma
Condition: Fair
Diet: No restrictions
Activity: No restrictions
Driving Restrictions: As prior to admission
Bathing Restrictions: None
Referrals:
Joan Boucher DO [Family Provider, Family Practice] - in less than 1 week
Additional Discharge Medication Instructions: We are sending you home with a physical prescription for Oxycodone 5mg. You may take this NEEDED for SEVERE PAIN once every 8 hours. Please give this script to the pharmacy to have it filled.
Please follow up with your primary care doctor in less than 1 week. We also encourage you to follow up with your Administrative Support Clerk/Oncologist at [facility]. Please inform them of your recent hospitalization.
Prescriptions:
Continued
Eliquis 5 mg Tablet
5 mg PO BID
amlodipine [Norvasc] 10 mg Tablet
10 mg PO DAILY
hydrochlorothiazide 25 mg Tablet
25 mg PO DAILY
lorazepam 1 mg Tablet
1 mg PO BIDPRN PRN (Reason: anixety)
Discharge Orders:
Discharge Patient (As Directed); Ordered 02/22/25
Ordered By: Liberty Gallagher
Discharge Date and Time
Discharge Date/Time: 02/22/25 19:32
Print Language: LUXEMBOURGER
--- NOTE | 2025-02-22 18:57 | PTCARENOTE ---
pt d/c instructions completed. pt's peripheral IV site bleeding with multiple redressing. Quick-clot obtained from IV team and pressure dressing applied over. pt stayed 15 min to ensure no additional bleeding.
== END 2025-02-22 19:32 | disposition home or self-care (01) | DRG 809 ==
LOC: 3 WEST ACU 18:58
PROVIDERS: Nurse Practitioner; Registered Nurse; ADMITTING PHYSICIAN Internal Medicine; ATTENDING PHYSICIAN Family Medicine; EMERGENCY PHYSICIAN Emergency Medicine; FAMILY PHYSICIAN Family Medicine; OTHER PHYSICIAN Internal Medicine Hematology & Oncology
DX: D61.810 Antineoplastic chemotherapy induced pancytopenia (principal); C49.9 Malignant neoplasm of connective and soft tissue, unspecified; E87.1 Hypo-osmolality and hyponatremia; C78.7 Secondary malignant neoplasm of liver and intrahepatic bile duct; C79.71 Secondary malignant neoplasm of right adrenal gland; J98.11 Atelectasis; R18.8 Other ascites; R53.1 Weakness; T45.1X5A Adverse effect of antineoplastic and immunosuppressive drugs, initial encounter; D70.1 Agranulocytosis secondary to cancer chemotherapy; R06.02 Shortness of breath; E86.1 Hypovolemia; R04.0 Epistaxis; K59.00 Constipation, unspecified; I10 Essential (primary) hypertension; F41.9 Anxiety disorder, unspecified; Z86.711 Personal history of pulmonary embolism; Z79.899 Other long term (current) drug therapy; Z79.01 Long term (current) use of anticoagulants
CPT/HCPCS: 71275; 74177; 80048; 81003; 81015; 83690; 83735; 83880; 85025; 85027; 96360; 96361; 97163; 97167; 99285; Q9967